=== PATIENT | male | born 1950 | race Caucasian/White ===

== ENCOUNTER 2023-08-09 06:34 | Inpatient (IN) | payer OTHER, SELFPAY ==
--- NOTE | 2023-03-29 09:02 | CM ---
Addendum entered by Macie Pearce 07/12/23 12:03:
Patient's surgery date has been changed to 08/09/23. Spoke with patient via telephone. Reintroduced role of Orthopedic Navigator and confirmed information previously obtained for case management assessment. In addition to DME listed below, patient
also has a lift chair which he occasionally uses to stand up. Also discussed orthopedic program and post surgical plans. Reviewed anticipated length of stay and that goal is for him to return home at discharge. Also reviewed outpatient PT. Patient
is in agreement with tentative plan and will go directly to outpatient PT at [facility].
Original Note:
Patient is scheduled for an elective L THR on 04/26/23. Spoke with patient prior to surgery via telephone. Introduced role of Orthopedic Navigator. Patient reports that he lives with his and son in a one story home. There are no steps to enter
and three steps up to the master bedroom. He currently functions independently. He has a cane, rolling walker, hip kit and raised toilet seat (all from his prior THR done 23 years ago at )> he reports a distant history of having had VN services.
PCP is Dr. Marty Jenkins.
Discussed orthopedic program and post surgical plans. Reviewed anticipated length of stay and that goal is for him to return home at discharge. Also reviewed outpatient PT. Patient is in agreement with tentative plan and will go directly to
outpatient PT at [facility]. He will have support from his and son when he goes home.
Patient has completed online education.
Plan: Orthopedic Navigator will remain available to assist with the care of patient and will reassess discharge needs after surgery.
[2023-04-05 13:19] VITALS: BMI 41.1
[2023-04-05 14:03] LABS: Hematocrit 43.4 % (39.0-52.0); Hemoglobin 15.2 g/dL (13.0-18.0); Mean Corpuscular Volume 88.6 fL (80.0-94.0); Mean Platelet Volume 9.7 fL (7.4-10.4); Platelet Count 331 10^3/uL (130-400); Red Cell Dist. Width 13.2 % (11.5-14.5); White Blood Cell Count 10.4 10^3/uL (4.8-10.8)
[2023-04-05 14:10] LABS: Glycohemoglobin (HgbA1c) 9.7 % (4.0-5.6)
[2023-04-05 14:21] LABS: ALT (SGPT) 28 U/L (0-50); AST (SGOT) 25 U/L (17-59); Albumin 3.9 g/dl (3.5-5.0); Alkaline Phosphatase 93 U/L (38-126); Blood Urea Nitrogen 31 mg/dl (9-20); Calcium 9.8 mg/dl (8.4-10.2); Carbon Dioxide 18 mmol/L (22-30); Chloride 107 mmol/L (98-107); Estimated Creatinine Clearance 50 ml/min; Glomerular Filtration Rate 39.8; Glucose 347 mg/dl (70-99); Potassium 5.5 mmol/L (3.5-5.1); Sodium 137 mmol/L (135-145); Total Bilirubin 0.4 mg/dl (0.2-1.3); Total Protein 7.2 g/dl (6.3-8.2)
[2023-04-05 14:58] VITALS: BMI 41.1
[2023-07-21 12:50] VITALS: BMI 40.5
[2023-07-21 13:55] LABS: Hemoglobin 14.2 g/dL (13.0-18.0); Mean Corpuscular Hgb 31.1 pg (27.0-31.0); Mean Corpuscular Volume 94.1 fL (80.0-94.0); Mean Platelet Volume 10.7 fL (7.4-10.4); Platelet Count 259 10^3/uL (130-400); Red Blood Cell Count 4.57 10^6/uL (4.70-6.10)
[2023-07-21 14:08] LABS: ALT (SGPT) 21 U/L (0-50); AST (SGOT) 29 U/L (17-59); Albumin 4.1 g/dl (3.5-5.0); Alkaline Phosphatase 65 U/L (38-126); Blood Urea Nitrogen 36 mg/dl (9-20); Calcium 9.5 mg/dl (8.4-10.2); Carbon Dioxide 18 mmol/L (22-30); Chloride 108 mmol/L (98-107); Estimated Creatinine Clearance 42 ml/min; Glucose 102 mg/dl (70-99); Potassium 5.8 mmol/L (3.5-5.1); Sodium 134 mmol/L (135-145); Total Bilirubin 0.6 mg/dl (0.2-1.3); Total Protein 7.1 g/dl (6.3-8.2); eGFR 34.81
[2023-07-21 14:49] VITALS: BMI 40.5
--- NOTE | 2023-07-21 17:04 | HPS.HSE ---
Family Physician
-
Family Physician: Marty Jenkins [phone]
Chief Complaint
-
Advanced primary osteoarthritis of the left hip.
�
History of Present Illness
The patient bella very pleasant a 72-year-old morbidly
obese, male presenting today for advanced primary
osteoarthritis of the left hip. The patient previously underwent an
uncomplicated right total hip arthroplasty with Dr. Casey Govea
in September 1999. He returns to [facility] today with
complaints of significant left hip pain associated with his osteoarthritis.
He notes that his current left hip pain is greatly interfering with his
activities of daily living and is overall impacting his quality of life. He
has tried and failed multiple conservative treatment measures in the
past for his left hip pain. These conservative treatment measures
include activity modification, self therapeutic exercises, medical
management with Tylenol and NSAIDs, and the application of ice
and/or heat. Recent x-ray findings of the left hip demonstrated
joint space narrowing, flattening of the femoral head, and
periarticular bone spurs. He was determined to be in need of a left
total hip arthroplasty. He denies any current complaints today such
as chest pain, shortness of breath, palpitations, nausea, vomiting,
diarrhea, lightheadedness, dizziness, cough, sore throat, or fever.
�
� � � � � � � � � � � � � � � �
Medical History
Past Medical History
Past Medical History: Reports Other (see below)
Additional Past Medical History:
1. Osteoarthritis, status post right total hip arthroplasty, 09/1999,
� � by Dr. Casey Govea.
2. Hypertension.
3. Hypercholesterolemia.
4. Pulmonary nodule.
5. Obstructive sleep apnea, improved with weight loss.
6. Chronic kidney disease stage 3.
7. Wtt-qkzfgyc-ihvyxqjoo diabetes with neuropathy.
8. Colon cancer, 2015, status post right hemicolectomy.
9. GERD.
10. BPH.
11. Morbid obesity, BMI 40.5
12. Remote history of tobacco abuse.
Past Surgical History: Reports Other (see below)
Additional Past Surgical History:
1. Right total hip arthroplasty, 09/1999, by Dr. Casey Govea.
2. Right shoulder arthroscopy, subacromial decompression, and
� � distal clavicle excision.
3. Right hemicolectomy.
4. Multiple colonoscopies.
5. Endoscopy.
Social History
Tobacco: Former Smoker
Alcohol: Occasional
Family History
Family History: Not pertinent
Allergies / Home Medications
Allergies reflects when Allergies were last updated in [employer].
Home Medications with original date entered in [employer]
Allergy/Medication List:
MEDICATIONS:
1. Albuterol sulfate two puffs inhaled up to six times a day as needed.
2. Aspirin 81 mg p.o. daily.
3. Atorvastatin 10 mg p.o. at bedtime.
4. Cholecalciferol 50 mcg p.o. daily.
5. Colace 300 mg p.o. daily.
6. Glipizide 10 mg p.o. twice a day.
7. Lisinopril 20 mg p.o. at bedtime.
8. Magnesium 400 mg p.o. daily.
9. Metformin 1000 mg p.o. twice a day.
10. Multivitamin one tablet p.o. daily.
11. Omeprazole 20 mg p.o. daily.
12. Fiber 0.4 gm p.o. twice a day.
13. Tamsulosin 0.8 mg p.o. at bedtime.
14. Tolterodine 2 mg p.o. twice a day.
15. Vitamin E 400 units p.o. daily.
16. Zinc acetate 50 mg p.o. daily.
17. Mounjaro SQ weekly on Fridays.
�
ALLERGIES:� No known allergies.
�
Review of Systems
-
A 12 point ROS was completed and negative except as noted: Yes
Physical Exam
Vital Signs
Blood pressure 129/74, heart rate 75, respirations 18,
pulse ox 94%, increasing to 96% with encourage deep breathing
Physical Exam
General: Well Developed and Well Nourished
HEENT: NormoCephalic
Respiratory: Clear
Cardiac: S1/S2
GI: Soft, Non Tender, Normal Bowel Sounds and No Hepatosplenomegaly
Musculoskeletal: Other (Left hip: pain with minimal internal rotation to 20 degrees, pain with external rotation to 20 degrees, abduction of 30 degrees, and pain with flexion to 110 degrees. Right hip: no pain with internal rotation to 20 degrees.
No pain with external rotation to 20 degrees, abduction of 30 degrees, and f)
Skin: Warm and Dry
Neuro: AO x 3 and Cranial Nerves Intact
Laboratory Results
-
07/21/23 12:34
07/21/23 12:34
Laboratory Results
Total Bilirubin 0.6 mg/dl (0.2-1.3) 07/21/23 12:34
AST 29 U/L (17-59) 07/21/23 12:34
ALT 21 U/L (0-50) 07/21/23 12:34
Alkaline Phosphatase 65 U/L (38-126) 07/21/23 12:34
Impression/Plan
-
1. Advanced primary osteoarthritis of the left hip in need of a
� � left total hip arthroplasty by Dr. Casey Govea on
� � 04/26/2023. The benefits and risks of the procedure have been
� � explained to the patient. The patient understands these risks
� � and wishes to proceed.
2. Deep vein thrombosis prophylaxis: Aspirin with bilateral venous
� � compression devices.
3. Chronic constipation: We will add nightly Milk of Magnesia to a
� � bowel regimen of Colace and Senokot post-surgery.
[phone]�Cell Phone Number�
AUTHORIZED CONTACTS
Primary Contact�
NERIS CRAWLEY�
SPOUSE�Rel to Pat�
[phone]�cell Phone Number�
[2023-07-22 09:48] LABS: Glycohemoglobin (HgbA1c) 5.8 % (4.0-5.6)
--- NOTE | 2023-08-05 13:23 | PTCARENOTE ---
K+ 5.8, reviewed by Dr. Mendez, ordered repeat CMP (on 08/09/23) ; Christina Garduno PA-C notified. No further instructions at this time.
[2023-08-09] VITALS (7 sets, daily range): BP systolic 114–137; BP diastolic 72–79; PULSE 66; O2SAT 93
[2023-08-09 10:18] LABS: Glucose - Point of Care 135 mg/dl (70-99)
[2023-08-09] MEDS: CELEBREX 200 MG PO (10:33)
[2023-08-09] MEDS: NORMOSOL-R 1000 IV (10:33)
[2023-08-09] MEDS: TYLENOL 650 MG PO (10:34)
[2023-08-09 15:07] LABS: Glucose - Point of Care 137 mg/dl (70-99)
[2023-08-09] MEDS: NSS 1000 IV (15:09)
[2023-08-09] MEDS: ROXICODONE 5 MG PO (15:11)
[2023-08-09 17:48] LABS: ALT (SGPT) 22 U/L (0-50); AST (SGOT) 42 U/L (17-59); Albumin 3.8 g/dl (3.5-5.0); Alkaline Phosphatase 59 U/L (38-126); Blood Urea Nitrogen 32 mg/dl (9-20); Calcium 9.4 mg/dl (8.4-10.2); Carbon Dioxide 20 mmol/L (22-30); Chloride 105 mmol/L (98-107); Estimated Creatinine Clearance 44 ml/min; Glucose 183 mg/dl (70-99); Potassium 5.1 mmol/L (3.5-5.1); Sodium 137 mmol/L (135-145); Total Bilirubin 0.5 mg/dl (0.2-1.3); Total Protein 6.8 g/dl (6.3-8.2); eGFR 37.02
[2023-08-09] MEDS: ASPIRIN 325 MG PO (18:03)
[2023-08-09] MEDS: ANCEF 5 IV (18:03)
[2023-08-09] MEDS: GLUCOPHAGE 1000 MG PO (18:03)
[2023-08-09] MEDS: GLUCOTROL XL (EXTENDED RELEASE) 10 MG PO (18:03)
[2023-08-09 18:09] LABS: Glucose - Point of Care 293 mg/dl (70-99)
[2023-08-09] MEDS: COLACE 100 MG PO (19:34)
[2023-08-09] MEDS: SENOKOT 17.1999999999999993 MG PO (19:34)
[2023-08-09] MEDS: BACTROBAN 2% OINTMENT 1 APPLIC NASAL (19:34)
[2023-08-09] MEDS: PROTONIX 20 MG PO (19:34)
[2023-08-09 20:56] LABS: Glucose - Point of Care 212 mg/dl (70-99)
[2023-08-09] MEDS: NEURONTIN 300 MG PO (21:06)
[2023-08-09] MEDS: LIPITOR 10 MG PO (21:06)
[2023-08-09] MEDS: ZESTRIL 5 MG PO (21:06)
[2023-08-09] MEDS: FLOMAX 0.800000000000000044 MG PO (21:06)
[2023-08-10] MEDS: NSS 1000 IV (00:38)
[2023-08-10] MEDS: ANCEF 5 IV (02:58)
[2023-08-10 03:35] VITALS: BP 107/65
[2023-08-10] MEDS: ROXICODONE 5 MG PO ×2 (04:20→08:16)
[2023-08-10 07:10] VITALS: BP 103/59
[2023-08-10 08:04] LABS: Glucose - Point of Care 70 mg/dl (70-99)
[2023-08-10] MEDS: BACTROBAN 2% OINTMENT 1 APPLIC NASAL (08:17)
[2023-08-10] MEDS: SENOKOT 17.1999999999999993 MG PO (08:17)
[2023-08-10] MEDS: GLUCOTROL XL (EXTENDED RELEASE) 10 MG PO (08:17)
[2023-08-10] MEDS: GLUCOPHAGE 1000 MG PO (08:17)
[2023-08-10] MEDS: ASPIRIN 325 MG PO (08:17)
[2023-08-10] MEDS: PROTONIX 20 MG PO (08:17)
[2023-08-10] MEDS: COLACE 100 MG PO (08:18)
[2023-08-10] MEDS: METAMUCIL, KONSYL 1 PACKET PO (08:18)
[2023-08-10] MEDS: MAG-TAB SR 84 MG PO (08:18)
[2023-08-10 09:26] LABS: Glucose - Point of Care 141 mg/dl (70-99)
[2023-08-10] MEDS: NSS 500 IV (11:23)
[2023-08-10] MEDS: ProAmatine 5 MG PO (11:23)
[2023-08-10] MEDS: NSS IV (11:23)
[2023-08-10 11:26] VITALS: BP 114/51
[2023-08-10 11:32] VITALS: BP 114/51; BP 120/60; PULSE 81; PULSE 87
[2023-08-10 12:07] LABS: Glucose - Point of Care 272 mg/dl (70-99)
--- NOTE | 2023-08-10 12:16 | W.PN.ORTHO ---
Today's Communication / Plan
-
d/c if BP remains stable
Assessment
.
Distal Motor Intact: Yes
Dressing:
Clean, dry and intact.
Assessment:
Hypotension/dizzy--Midodrine+ IVF bolus-check orthostatics
Plan
.
Surgery / Date: Mary Govea 08/09/23
DVT Prophylaxis: Aspirin
Activity:
Out of bed.
PT/OT
Discharge Plan: Home w/ Outpatient PT
Subjective
.
.:
Patient resting comfortably.
Lightheaded earlier
Vital Signs and Labs
.
Vital Signs and Labs:
Lab Results
07/21/23 12:34
08/09/23 17:21
Temp Pulse Resp BP Pulse Ox
97.8 F 81 19 114/51 94
08/10/23 11:26 08/10/23 11:26 08/10/23 11:26 08/10/23 11:26 08/10/23 11:26
Non-invasive Hgb result: 12.4
Physical Exam
-
HEENT: No pallor, cyanosis, or jaundice. Throat clear.
NECK: Supple. No JVD.
RESPIRATORY: Lungs clear to auscultation.
CVS: S1, S2 normal. RRR.� No murmur, rub or gallop.
ABDOMEN: Soft, non-tender. No distension. BS+/normal.
EXTREMITIES: strength equal, no calf pain with palpation
CERTIFIED RETINAL ANGIOGRAPHER: AOx3. No focal deficits. mortgage closer grossly intact
--- NOTE | 2023-08-10 12:25 | W.DS.TRANS ---
DC Summary - Survey Compiler
-
Discharge Instructions:
Sleep Apnea Risk High
Discharge Diagnosis/Procedures L RED Govea 08/09/23
Diet Diabetic, Carb Controlled
Activity With Walker
Driving Restrictions No driving
Bathing Restrictions OK to Shower
Other Services PT
Instructions:
Stand-Alone Forms: Total Hip/Knee Replacement D/C
Changes to Home Medications: Yes
Discharge Medications:
DC Medications w/original date entered in [employer]
metformin 1,000 mg tablet 1,000 mg PO BID@0800,1700 11/10/13
omeprazole 20 mg tablet,delayed release 20 mg PO BID 11/10/13
atorvastatin 10 mg tablet 10 mg PO HS High Cholesterol 11/08/14
albuterol sulfate 90 mcg/actuation aerosol inhaler 2 puff inhalation 6XD PRN SOB 04/01/23
docusate sodium 100 mg tablet 300 mg PO DAILY Constipation 04/01/23
glipizide 10 mg tablet, extended release 24 hr 10 mg PO DAILY Diabetes 04/01/23
magnesium 200 mg tablet 400 mg PO DAILY Supplement 04/01/23
multivitamin 1 tab PO DAILY 04/01/23
tamsulosin 0.4 mg capsule 0.8 mg PO HS 04/01/23
tolterodine 2 mg tablet 2 mg PO BID 04/01/23
zinc acetate 50 mg (zinc) capsule 50 mg PO DAILY 04/01/23
cholecalciferol (vitamin D3) 50 mcg (2,000 unit) tablet 50 mcg PO DAILY Supplement 04/05/23
psyllium 1 packet PO DAILY 07/16/23
tirzepatide 5 mg/0.5 mL subcutaneous pen injector (Mounjaro) 5 mg SC QWEEK 07/16/23
vitamin E 400 units PO DAILY 07/16/23
mupirocin 2 % topical ointment 1 applic topical BID infection prevention #1 tube 07/21/23
Saccharomyces boulardii 250 mg capsule (Florastor) 250 mg PO BID #1 cap 08/10/23
acetaminophen 325 mg capsule (Tylenol) 650 mg PO QID #2 caps 08/10/23
aspirin 325 mg tablet 325 mg PO DAILY blood clot prevention #1 tab 08/10/23
cefadroxil 500 mg capsule 500 mg PO BID infection prevention #14 caps 08/10/23
gabapentin 300 mg capsule 300 mg PO HS sleep/pain #10 caps 08/10/23
lisinopril 20 mg tablet 20 mg PO HS Blood Pressure #0 tabs 08/10/23
magnesium hydroxide 400 mg/5 mL oral suspension (Milk of Magnesia) 30 ml PO HS PRN Constipation #1 mL 08/10/23
oxycodone 5 mg tablet 5 - 10 mg PO Q6HPRN PRN 1 tab moderate-2 tabs severe pain #30 tabs 08/10/23
sennosides 8.6 mg tablet (Senokot) 17.2 mg PO BID laxative #2 tabs 08/10/23
Home Medication Changes
cefadroxil 500 mg capsule 500 mg PO BID infection prevention #14 caps 08/10/23
gabapentin 300 mg capsule 300 mg PO HS sleep/pain #10 caps 08/10/23
lisinopril 20 mg tablet 20 mg PO HS Blood Pressure #0 tabs 08/10/23
magnesium hydroxide 400 mg/5 mL oral suspension (Milk of Magnesia) 30 ml PO HS PRN Constipation #1 mL 08/10/23
oxycodone 5 mg tablet 5 - 10 mg PO Q6HPRN PRN 1 tab moderate-2 tabs severe pain #30 tabs 08/10/23
Pending Results: Yes (BP recheck )
[2023-08-10 13:13] VITALS: BP 122/62; BP 139/63; PULSE 81; O2SAT 95
[2023-08-10 13:34] VITALS: BP 139/63; PULSE 95
--- NOTE | 2023-08-10 14:31 | CM ---
Reviewed chart and held rounds with PT, OT and nursing. Patient admitted as planned for elective LTHR. Met with patient at bedside. Confirmed information previously obtained for assessment. Also discussed discharge plans. The plan is for patient to
return home at discharge. He will have support from his when he goes home. Patient will go directly to outpatient PT and will go to [facility] He has an appointment scheduled for Wednesday, 08/11. Reviewed need to schedule appointment with GUANAKITO "Mehrdad"at Dr. Govea office in two weeks for removal of ligia.
Patient has a rolling walker, cane, raised toilet seat and shower seat, hip kit and electric lift.
He will use [facility] pharmacy for discharge prescriptions.
--- NOTE | 2023-08-10 14:55 | PTCARENOTE ---
Rn Flow Bookseamer Blindstitch-Patient cleared for d/c. Patient provided with d/c instructions.
== END 2023-08-10 15:24 | disposition home or self-care (01) | DRG 470 ==
LOC: 2 SOUTH 06:34
PROVIDERS: Specialist; ADMITTING PHYSICIAN Specialist; FAMILY PHYSICIAN Family Medicine
PROC: 0SRB04A Replacement of Left Hip Joint with Ceramic on Polyethylene Synthetic Substitute, Uncemented, Open Approach (ICD-10-PCS; 2023-08-09)
DX: M16.12 Unilateral primary osteoarthritis, left hip (principal); Z68.41 Body mass index [BMI] 40.0-44.9, adult; E66.01 Morbid (severe) obesity due to excess calories; Z96.641 Presence of right artificial hip joint; E78.00 Pure hypercholesterolemia, unspecified; N18.30 Chronic kidney disease, stage 3 unspecified; E11.22 Type 2 diabetes mellitus with diabetic chronic kidney disease; K21.9 Gastro-esophageal reflux disease without esophagitis; Z87.891 Personal history of nicotine dependence; E87.5 Hyperkalemia; G47.33 Obstructive sleep apnea (adult) (pediatric); N40.0 Benign prostatic hyperplasia without lower urinary tract symptoms; I12.9 Hypertensive chronic kidney disease with stage 1 through stage 4 chronic kidney disease, or unspecified chronic kidney disease
CPT/HCPCS: 36415; 73502; 80053; 82962; 83036; 85027; 87070; 93005; 97110; 97116; 97162; 97166; 97530; 97535; C1713; C1776

== ENCOUNTER → 2023-09-07 12:33 | Outpatient (REF) | payer OTHER, SELFPAY ==
[2023-09-07 13:03] LABS: % Basophils 0.4 % (0-2); % Eosinophils 1.9 % (0-6); % Immature Granulocytes 0.4 % (0-0.5); % Lymphocytes 9.5 % (20.5-51.1); % Monocytes 8.1 % (1.7-9.3); % Neutrophils 79.7 % (42.2-75.2); Absolute Eosinophils 0.2 10^3/uL (0-0.7); Absolute Monocytes 0.9 10^3/uL (0.1-0.6); Absolute Neutrophils 8.6 10^3/uL (1.4-6.5); Hematocrit 37.9 % (39.0-52.0); Hemoglobin 12.7 g/dL (13.0-18.0); Mean Corp Hgb Conc. 33.5 g/dL (33.0-37.0); Mean Corpuscular Hgb 30.6 pg (27.0-31.0); Mean Corpuscular Volume 91.3 fL (80.0-94.0); Mean Platelet Volume 8.6 fL (7.4-10.4); Nucleated Red Blood Cells % 0 % (-); Platelet Count 287 10^3/uL (130-400); Red Blood Cell Count 4.15 10^6/uL (4.70-6.10); Red Cell Dist. Width 13.5 % (11.5-14.5); White Blood Cell Count 10.8 10^3/uL (4.8-10.8)
[2023-09-07 13:28] LABS: Blood Urea Nitrogen 34 mg/dl (9-20); Calcium 9.8 mg/dl (8.4-10.2); Carbon Dioxide 21 mmol/L (22-30); Chloride 106 mmol/L (98-107); Glucose 134 mg/dl (70-99); Potassium 5.4 mmol/L (3.5-5.1); Sodium 136 mmol/L (135-145); eGFR 31.05
== END ==
LOC: REG 12:33
PROVIDERS: ATTENDING PHYSICIAN Family Medicine
DX: R39.15 Urgency of urination (principal); R50.9 Fever, unspecified
CPT/HCPCS: 36415; 80048; 85025; 86140

== ENCOUNTER 2024-10-27 11:08 | Emergency (ER) | payer OTHER, SELFPAY ==
[2024-10-27 11:12] VITALS: BP 113/70
[2024-10-27 11:35] VITALS: BP 112/68
[2024-10-27 11:53] LABS: % Basophils 0.5 % (0-2); % Eosinophils 1.9 % (0-6); % Immature Granulocytes 0.3 % (0-0.5); % Lymphocytes 28.5 % (20.5-51.1); % Monocytes 11.5 % (1.7-9.3); % Neutrophils 57.3 % (42.2-75.2); Absolute Eosinophils 0.2 10^3/uL (0-0.7); Absolute Lymphocytes 2.2 10^3/uL (1.2-3.4); Absolute Monocytes 0.9 10^3/uL (0.1-0.6); Absolute Neutrophils 4.4 10^3/uL (1.4-6.5); Hematocrit 37.4 % (39.0-52.0); Hemoglobin 12.9 g/dL (13.0-18.0); Mean Corp Hgb Conc. 34.5 g/dL (33.0-37.0); Mean Corpuscular Hgb 30.9 pg (27.0-31.0); Mean Corpuscular Volume 89.5 fL (80.0-94.0); Nucleated Red Blood Cells % 0 % (-); Platelet Count 389 10^3/uL (130-400); Red Blood Cell Count 4.18 10^6/uL (4.70-6.10); Red Cell Dist. Width 13.6 % (11.5-14.5); White Blood Cell Count 7.7 10^3/uL (4.8-10.8)
[2024-10-27 12:00] VITALS: BP 105/73
[2024-10-27 12:05] LABS: ALT (SGPT) 19 U/L (0-50); AST (SGOT) 22 U/L (17-59); Albumin 3.9 g/dl (3.5-5.0); Alkaline Phosphatase 81 U/L (38-126); Blood Urea Nitrogen 44 mg/dl (9-20); Calcium 9.6 mg/dl (8.4-10.2); Carbon Dioxide 16 mmol/L (22-30); Chloride 113 mmol/L (98-107); Glucose 139 mg/dl (70-99); Potassium 5.6 mmol/L (3.5-5.1); Sodium 140 mmol/L (135-145); Total Bilirubin 0.5 mg/dl (0.2-1.3); Total Protein 7.3 g/dl (6.3-8.2); eGFR 32.42
[2024-10-27] MEDS: LOKELMA 10 GRAM PO (12:36)
[2024-10-27] MEDS: NSS 1000 IV (12:39)
[2024-10-27 13:00] VITALS: BP 121/72
[2024-10-27 13:11] LABS: Urine Albumin 1+ (Neg - Trace); Urine Bilirubin Negative (Negative); Urine Character Clear (Clear); Urine Color Yellow; Urine Glucose Negative (Negative); Urine Ketone Negative (Negative); Urine Leukocyte 1+ (Negative); Urine Nitrite Negative (Negative); Urine Occult Blood Negative (Negative); Urine Specific Gravity 1.015 (<1.030); Urine Urobilinogen Negative (Neg - 1+)
--- NOTE | 2024-10-27 13:34 | ED.GENMED ---
History of Present Illness
General
Chief Complaint: Abnormal Lab Value
Time Seen by Provider: 10/27/24 11:43
History of Present Illness
History of Present Illness:
74-year-old male presents the emergency department for evaluation of abnormal outpatient labs. Had routine labs done yesterday showing a potassium of 6.1. States he has some mild dizziness but denies any other symptoms. No chest pain or
palpitations.
Past History
Past History
ED Past Medical History: HTN, Hypercholesterolemia and NIDDM
ED Past Surgical History: Other (R hip replacement [address] Govea)
Social History
Tobacco: Non-smoker
Alcohol: Occasional
Personal:
Living: with family
Employment: Employed
Family History
Family History: Other (Noncontributory)
Review of Systems
Review of Systems
Allergies reviewed?: Yes
All Other Systems: ROS reviewed and negative except as documented in HPI and ROS
Phy Exam
Physical Exam
Physical Exam:
GEN: Well appearing, NAD, WDWN
HEENT: Oral mucosa moist, no scleral icterus
Cardiac: Regular rate
Lung: No respiratory distress, no tachypnea
MSK: No gross deformity or injuries
Skin: Good color, no pallor or jaundice, no rashes
Neuro: AO x3, moves all extremities freely
Psych: Calm, cooperative
Course
Orders/Labs/Results
Orders:
Orders
10/27/24 11:15
EKG [Electrocardiogram (*1)] Urgent
Reason for Study: Vertigo / Dizzy
Other Reason for Exam: high potassium
EKG- Treatment ONCE
10/27/24 11:37
CBC/With Diff [Complete Blood Count/With Diff] Urgent
Comprehensive Metabolic Panel Urgent
10/27/24 12:14
0.9% Sodium Chloride 1000 ml [Nss] 1,000 ml IV BOLUS
Sodium Zirconium Cyclosilicate [Lokelma] 10 gram PO NOW STA
10/27/24 12:35
Urinalysis Reflex To Culture Urgent
Date Specimen was Collected: 10/27/24
Time Specimen was Collected: 12:26
Urine Microscopic Reflex Cult Urgent
Urine Culture Urgent
ROSARIO Source: U
Specimen Description:
Date Specimen was Collected: 10/27/24
Time Specimen was Collected: 12:26
Abnormal Lab Results
10/27/24 10/27/24
11:37 12:35
RBC 4.18 L 10^6/uL
(4.70-6.10)
Hgb 12.9 L g/dL
(13.0-18.0)
Hct 37.4 L %
(39.0-52.0)
Absolute Monos (auto) 0.9 H 10^3/uL
(0.1-0.6)
Monocytes % 11.5 H %
(1.7-9.3)
Potassium 5.6 H mmol/L
(3.5-5.1)
Chloride 113 H mmol/L
(98-107)
Carbon Dioxide 16 L mmol/L
(22-30)
BUN 44 H mg/dl
(9-20)
Creatinine 2.1 H mg/dL
(0.7-1.3)
Glucose 139 H mg/dl
(70-99)
Leukocyte Esterase Rfl 1+ A
(Negative)
Urine Albumin (Reflex) 1+ A
(Neg - Trace)
10/27/24 11:37
10/27/24 11:37
Vital Signs
Initial and Last Documented VS:
Initial Vital Signs
Temp Pulse Resp BP Pulse Ox
97.7 F 63 16 113/70 98
10/27/24 11:12 10/27/24 11:12 10/27/24 11:12 10/27/24 11:12 10/27/24 11:12
Last Documented Vital Signs
Temp Pulse Resp BP Pulse Ox
97.7 F 63 16 121/72 96
10/27/24 11:12 10/27/24 11:12 10/27/24 11:12 10/27/24 13:00 10/27/24 13:30
MDM/Problems Addressed
MDM/Problems Addressed:
Patient's potassium is only marginally elevated at 5.6. He does some some degree of chronic hyperkalemia likely secondary to chronic kidney disease. He is given IV fluids and a single dose of Lokelma, will recommend he follow-up with nephrology as
an outpatient to discuss his CKD management further. Also should follow-up for repeat labs early next week
*Critical Care Note
Total Time (30-74mins, 75-104mins- exclusive of procedures): Not Applicable
ED Attending Note
-
Portions of this chart may have been created with voice recognition software.� Occasional wrong word or��sound alike� substitutions may have occurred due to the inherent limitations of voice recognition software.
Discharge Plan
Departure
Patient Disposition: Home (Routine Discharge)
Date of Disposition: 10/27/24
Time of Disposition: 13:37
Patient with high blood pressure during this ER visit?: No
Discharge Problem:
Chronic kidney disease (CKD), Hyperkalemia
Instructions: Hyperkalemia (DC)
Prescriptions:
No Action
metformin 1,000 MG tablet
1,000 mg PO BID@0800,1700
omeprazole 20 MG tablet,delayed release (DR/EC)
20 mg PO BID
atorvastatin 10 MG tablet
10 mg PO HS
multivitamin Tablet
1 tab PO DAILY
zinc acetate 50 mg (zinc) Capsule
50 mg PO DAILY
glipizide 10 mg Tablet Extended Release 24hr
10 mg PO DAILY
tolterodine 2 mg Tablet
2 mg PO BID
tamsulosin 0.4 mg Capsule
0.8 mg PO HS
albuterol sulfate 90 mcg/actuation Hfa Aerosol Inhaler
2 puff INHALATION 6XD PRN (Reason: SOB)
docusate sodium 100 mg Tablet
300 mg PO DAILY
magnesium 200 mg Tablet
400 mg PO DAILY
cholecalciferol (vitamin D3) 50 mcg (2,000 unit) Tablet
50 mcg PO DAILY
psyllium Packet
1 packet PO DAILY
Mounjaro 5 mg/0.5 mL Pen Injector
5 mg SC QWEEK
vitamin E
400 units PO DAILY
mupirocin 2 % ointment
1 applic topical BID Qty: 1 0RF
Patient Comments:
this am
sennosides [Senokot] 8.6 mg tablet
17.2 mg PO BID Qty: 2 0RF
aspirin 325 mg tablet
325 mg PO DAILY Qty: 1 0RF
Rx Instructions:
Take with food
cefadroxil 500 mg capsule
500 mg PO BID Qty: 14 0RF
Rx Instructions:
*Take w/ food
*Take w/ probiotic
*POST-OP USE
magnesium hydroxide [Milk of Magnesia] 400 mg/5 mL suspension
30 ml PO HS PRN (Reason: Constipation) Qty: 1 0RF
gabapentin 300 mg capsule
300 mg PO HS Qty: 10 0RF
oxycodone 5 mg tablet
5 - 10 mg PO Q6HPRN PRN (Reason: 1 tab moderate-2 tabs severe pain) Qty: 30 0RF
Rx Instructions:
Dx surgery
ongoing therapy
Post-op use
Saccharomyces boulardii [Florastor] 250 mg capsule
250 mg PO BID Qty: 1 0RF
acetaminophen [Tylenol] 325 mg capsule
650 mg PO QID Qty: 2 0RF
lisinopril 20 MG tablet
20 mg PO HS Qty: 0 0RF
Rx Instructions:
HOLD SYSTOLIC BLOOD PRESSURE <130 X 5 DAYS
Referrals:
Marty Jenkins MD [Family Provider] -
Saravanan Keita DO [Active] -
Activity Restrictions/Additional Instructions:
Follow up with your primary care physician next week for repeat labs
Interventions
Interventions:
*Risk Screen - Suicide Last Done: 10/27/24 11:12
*General Assessment Last Done: 10/27/24 11:44
*Neglect/Abuse Screening Last Done: 10/27/24 11:12
*ED- Fall Risk Assessment Last Done: 10/27/24 11:42
*ED COVID-19 Vaccine History Last Done: 10/27/24 11:42
Discharge Date and Time
Print Language: JAPANESE
[2024-10-27 14:11] LABS: Urine Squamous Cell >30 /LPF (Few)
[2024-10-27 14:13] LABS: Urine Red Blood Cell 0-2 /HPF (0-2)
[2024-10-27 14:14] LABS: Urine Granular Cast 0-2 /LPF (0); Urine Hyaline Cast 0-2 /LPF (0-2)
== END 2024-10-27 14:05 | disposition home or self-care (01) ==
LOC: EMR 11:08
PROVIDERS: Emergency Medicine; Physician Assistant; EMERGENCY PHYSICIAN Emergency Medicine; FAMILY PHYSICIAN Family Medicine
DX: E11.22 Type 2 diabetes mellitus with diabetic chronic kidney disease (principal); I12.9 Hypertensive chronic kidney disease with stage 1 through stage 4 chronic kidney disease, or unspecified chronic kidney disease; N18.9 Chronic kidney disease, unspecified; E78.00 Pure hypercholesterolemia, unspecified; E87.5 Hyperkalemia; Z96.641 Presence of right artificial hip joint
CPT/HCPCS: 99283; 80053; 81003; 81015; 85025; 87086; 93005